=== PATIENT | female | born 1930 | race Caucasian/White ===

== ENCOUNTER 2017-07-09 11:45 | Emergency (ER) | payer MEDICARE ==
[~2017-07-09] VITALS: Ht 162.5 cm; Wt 59.0 kg
[2017-07-09 12:23] LABS: BASO % 0.4 % (0.0-1.0); EOS # 0.2 10*3/uL (0.0-0.4); EOS % 3.1 % (1.0-4.0); HEMATOCRIT 36.9 % (37.0-47.0); HEMOGLOBIN 11.7 g/dl (12.0-16.0); LYMPH # 1.4 10*3/uL (1.3-4.4); MEAN CELL VOLUME 81.3 fl (81.0-99.0); MEAN CORPUSCULAR HGB 25.8 pg (27.0-31.0); MEAN CORPUSCULAR HGB CONC 31.7 g/dl (33.0-37.0); MEAN PLATELET VOLUME 10.6 fl (9.6-12.3); MONO # 0.5 10*3/uL (0.1-1.0); MONO % 7.2 % (3.0-9.0); NEUT # 4.7 10*3/uL (2.3-7.9); NEUT % 68.4 % (47.0-73.0); PLATELET COUNT AUTOMATED 292 10*3/uL (130-400); RED BLOOD COUNT 4.54 10*6/uL (4.10-5.10); RED CELL DISTRI WIDTH 14.4 % (0-14.5); WHITE BLOOD COUNT 6.9 10*3/uL (4.8-10.8)
[2017-07-09 12:32] LABS: ACT PARTIAL THROMBO TIME 33.9 SECONDS (20.8-31.5); INTERNATIONAL NORM RATIO 2.2 (2.0-3.5)
[2017-07-09 12:35] LABS: BUN 19 mg/dl (7-24); CHLORIDE 101 mmol/L (98-107); CREATININE 0.57 mg/dL (0.55-1.02); SODIUM 137 mmol/L (136-145)
[2017-07-09] MEDS ORDERED: POTASSIUM CHLO20 ME3 PO (13:51)
== END 2017-07-09 17:12 | disposition home or self-care (01) ==
LOC: ED 11:45
PROVIDERS: Emergency Medicine
DX: S00.03XA Contusion of scalp, initial encounter (principal); S60.221A Contusion of right hand, initial encounter; S41.112A Laceration without foreign body of left upper arm, initial encounter; S09.8XXA Other specified injuries of head, initial encounter; E87.6 Hypokalemia; W17.89XA Other fall from one level to another, initial encounter; Y93.89 Activity, other specified; Y92.89 Other specified places as the place of occurrence of the external cause; Y99.8 Other external cause status